=== PATIENT | female | born 1945 | race Caucasian/White ===

== ENCOUNTER 2017-10-13 20:12 | Inpatient (IN) | payer OTHER, MEDICARE ==
[2017-10-13] MEDS ORDERED: SODIUM CHLORIDE 0.9% 500 ML IV STA (21:31)
[2017-10-13] MEDS ORDERED: ONDANSETRON 4 MG/2 ML VIAL IVP STA (21:41)
--- NOTE | 2017-10-13 21:44 | ED ---
Female Urogenital HPI - General Chief complaint: Urogenital Stated complaint: Hematuria, Abd pain Time Seen by Provider: 10/13/17 21:07 Source: patient, family, RN notes reviewed Mode of arrival: ambulatory Limitations: no limitations - History of Present Illness Initial comments: This is a 71-year-old female who presents to the emergency department with chief complaint of hematuria and abdominal pain. Patient states that this morning she developed nausea, vomiting and hematuria. She states that over the past few days she has noticed increased frequency in urination. Earlier this afternoon patient developed a constant sharp, throbbing pain in the right lower quadrant that radiates around to the right side of her back. Patient does report a history of chronic back pain but states that this feels different. She does report a history of appendectomy. Denies fevers, shortness of breath or chest pain, diarrhea or constipation. She does report chills. Denies dysuria. - Related Data Home Medications Medication Instructions Recorded Confirmed Aspirin EC [Ecotrin Low Dose] 81 mg PO DAILY 10/13/17 10/13/17 Carvedilol [Coreg] 3.125 mg PO BID 10/13/17 10/13/17 Escitalopram [Lexapro] 20 mg PO DAILY PRN 10/13/17 10/13/17 Etodolac [Lodine] 400 mg PO BID 10/13/17 10/13/17 Ibuprofen [Motrin Ib] 200 mg PO BID PRN 10/13/17 10/13/17 Ipratropium/Albuterol Sulfate 1 puff INHALATION RT-HS 10/13/17 10/13/17 [Combivent Respimat Inhaler] Levothyroxine Sodium [Synthroid] 88 mcg PO DAILY 10/13/17 10/13/17 Naproxen 500 mg PO BID 10/13/17 10/13/17 Pantoprazole Sodium 40 mg PO DAILY PRN 10/13/17 10/13/17 Sucralfate [Carafate] 1 gm PO DAILY PRN 10/13/17 10/13/17 Varenicline [Chantix Starter Pack] 0.5 mg PO BID 10/13/17 10/13/17 clonazePAM [KlonoPIN] 1 mg PO HS PRN 10/13/17 10/13/17 Allergies Allergy/AdvReac Type Severity Reaction Status Date / Time promethazine [From Phenergan] Allergy Rash/Hives Verified 10/13/17 21:12 Sulfa (Sulfonamide Allergy Rash/Hives Verified 10/13/17 21:12 Antibiotics) Review of Systems ROS Statement: Those systems with pertinent positive or pertinent negative responses have been documented in the HPI. ROS Other: All systems not noted in ROS Statement are negative. Past Medical History Past Medical History: Heart Failure Additional Past Medical History / Comment(s): pt scheduled for ablation on in [place] History of Any Multi-Drug Resistant Organisms: None Reported Past Surgical History: Appendectomy, Section, Cholecystectomy, Orthopedic Surgery Past Psychological History: No Psychological Hx Reported Smoking Status: Current every day smoker Past Alcohol Use History: None Reported Past Drug Use History: None Reported General Exam - General Exam Comments Initial Comments: General: Awake and alert, well-developed; in no apparent distress. Patient appears uncomfortable and has frequent episodes of dry heaving. HEENT: Head atraumatic, normocephalic. Pupils are equal, round and reactive to light. Extraocular movements intact. Oropharynx moist without erythema or exudate. Neck: Supple. Normal ROM. Cardiovascular: Regular rate and rhythm. No murmurs, rubs or gallops. Chest symmetrical. Respiratory: Lungs clear to auscultation bilaterally. No wheezes, rales or rhonchi. Normal respiratory effort with no use of accessory muscles. Abdomen: Soft, non-distended. Tenderness on palpation of right lower quadrant. No rigidity, rebound or guarding. Hypoactive bowel sounds in all 4 quadrants. No CVA tenderness bilaterally. Musculoskeletal: Normal ROM, no tenderness bilateral upper and lower extremities. Ambulating normally. Skin: [place], warm and dry without rashes or lesions. Neurological: Alert and oriented x3. CN II-XII grossly intact. Speech is fluent and answers are appropriate. No focal neuro deficits. Psychiatric: Normal mood and affect. No overt signs of depression or anxiety noted. Limitations: no limitations Course Vital Signs 10/13/17 10/13/17 20:19 22:39 Temperature 98.6 F 101.2 F H Pulse Rate 88 Respiratory 20 Rate Blood Pressure 137/74 O2 Sat by Pulse 96 Oximetry - Reevaluation(s) Reevaluation #1: At this time, patient is resting comfortably in bed. She states that her nausea and abdominal pain has slightly improved. She does continue to be tender on palpation of the right lower quadrant. Temperature was taken and is 101.2. Patient will be given Tylenol. Computed tomography scan pending. 10/13/17 22:49 Medical Decision Making - Medical Decision Making This is a 71-year-old female who presented to the emergency department with chief complaint of hematuria and right lower quadrant abdominal pain with radiation to her back. CBC revealed a hemoglobin of 7.7 with a white count of 17.7 and left shift at 14.8. Occult stool was negative. CMP was unremarkable. UA revealed 2+ protein, large blood, positive nitrates, large leukocyte esterase, 8 red blood cells and 97 white blood cells. Patient was started on Rocephin. Patient became febrile while in the emergency department so was given tylenol. Computed tomography scan of the abdomen and pelvis without contrast revealed evidence for right hydronephrosis and hydroureter. No stone was identified. This case was discussed with attending physician, Dr. Servin. Recommended admission to Dr. Spencer for pyelonephritis. Patient will be kept on Rocephin 1 g twice a day. Ultrasound of the renals and bladder will be scheduled for the morning. Patient was made aware of findings and plan. She is in agreement for admission. Vital signs are stable and patient is in no acute distress. - Lab Data Result diagrams: 10/13/17 21:57 10/13/17 21:57 Lab Results 10/13/17 10/13/17 10/13/17 Range/Units 21:57 21:57 21:57 WBC 17.7 H (3.8-10.6) k/uL RBC 4.04 (3.80-5.40) m/uL Hgb 7.7 L (11.4-16.0) gm/dL Hct 27.8 L (34.0-46.0) % MCV 68.7 L (80.0-100.0) fL MCH 19.0 L (25.0-35.0) pg MCHC 27.7 L (31.0-37.0) g/dL RDW 17.4 H (11.5-15.5) % Plt Count 373 (150-450) k/uL Neutrophils % 84 % Lymphocytes % 9 % Monocytes % 6 % Eosinophils % 0 % Basophils % 0 % Neutrophils # 14.8 H (1.3-7.7) k/uL Lymphocytes # 1.5 (1.0-4.8) k/uL Monocytes # 1.1 H (0-1.0) k/uL Eosinophils # 0.1 (0-0.7) k/uL Basophils # 0.0 (0-0.2) k/uL Hypochromasia Marked Poikilocytosis Slight Anisocytosis Slight Microcytosis Marked PT 10.3 (9.0-12.0) sec INR 1.1 (<1.2) APTT 21.3 L (22.0-30.0) sec Sodium 138 (137-145) mmol/L Potassium 4.1 (3.5-5.1) mmol/L Chloride 105 (98-107) mmol/L Carbon Dioxide 21 L (22-30) mmol/L Anion Gap 12 mmol/L BUN 9 (7-17) mg/dL Creatinine 0.74 (0.52-1.04) mg/dL Est GFR (CKD-EPI)AfAm >90 (>60 ml/min/1.73 sqM) Est GFR (CKD-EPI)NonAf 81 (>60 ml/min/1.73 sqM) Glucose 124 H (74-99) mg/dL Plasma Lactic Acid Donovan (0.7-2.0) mmol/L Calcium 9.0 (8.4-10.2) mg/dL Total Bilirubin 1.3 (0.2-1.3) mg/dL AST 22 (14-36) U/L ALT 30 (9-52) U/L Alkaline Phosphatase 115 (38-126) U/L Total Protein 6.4 (6.3-8.2) g/dL Albumin 3.9 (3.5-5.0) g/dL Amylase 43 (30-110) U/L Lipase 64 (23-300) U/L Urine Color Urine Appearance (Clear) Urine pH (5.0-8.0) Ur Specific [place] (1.001-1.035) Urine Protein (Negative) Urine Glucose (UA) (Negative) Urine Ketones (Negative) Urine Blood (Negative) Urine Nitrite (Negative) Urine Bilirubin (Negative) Urine Urobilinogen (<2.0) mg/dL Ur Leukocyte Esterase (Negative) Urine RBC (0-5) /hpf Urine WBC (0-5) /hpf Urine WBC Clumps (None) /hpf Urine Bacteria (None) /hpf Urine Mucus (None) /hpf Stool Occult Blood (Negative) 10/13/17 10/13/17 10/13/17 Range/Units 21:57 22:57 23:37 WBC (3.8-10.6) k/uL RBC (3.80-5.40) m/uL Hgb (11.4-16.0) gm/dL Hct (34.0-46.0) % MCV (80.0-100.0) fL MCH (25.0-35.0) pg MCHC (31.0-37.0) g/dL RDW (11.5-15.5) % Plt Count (150-450) k/uL Neutrophils % % Lymphocytes % % Monocytes % % Eosinophils % % Basophils % % Neutrophils # (1.3-7.7) k/uL Lymphocytes # (1.0-4.8) k/uL Monocytes # (0-1.0) k/uL Eosinophils # (0-0.7) k/uL Basophils # (0-0.2) k/uL Hypochromasia Poikilocytosis Anisocytosis Microcytosis PT (9.0-12.0) sec INR (<1.2) APTT (22.0-30.0) sec Sodium (137-145) mmol/L Potassium (3.5-5.1) mmol/L Chloride (98-107) mmol/L Carbon Dioxide (22-30) mmol/L Anion Gap mmol/L BUN (7-17) mg/dL Creatinine (0.52-1.04) mg/dL Est GFR (CKD-EPI)AfAm (>60 ml/min/1.73 sqM) Est GFR (CKD-EPI)NonAf (>60 ml/min/1.73 sqM) Glucose (74-99) mg/dL Plasma Lactic Acid Donovan 1.6 (0.7-2.0) mmol/L Calcium (8.4-10.2) mg/dL Total Bilirubin (0.2-1.3) mg/dL AST (14-36) U/L ALT (9-52) U/L Alkaline Phosphatase (38-126) U/L Total Protein (6.3-8.2) g/dL Albumin (3.5-5.0) g/dL Amylase (30-110) U/L Lipase (23-300) U/L Urine Color Light [place] Urine Appearance Turbid H (Clear) Urine pH 6.0 (5.0-8.0) Ur Specific [place] 1.013 (1.001-1.035) Urine Protein 2+ H (Negative) Urine Glucose (UA) Negative (Negative) Urine Ketones Negative (Negative) Urine Blood Large H (Negative) Urine Nitrite Positive H (Negative) Urine Bilirubin Negative (Negative) Urine Urobilinogen 3.0 (<2.0) mg/dL Ur Leukocyte Esterase Large H (Negative) Urine RBC 8 H (0-5) /hpf Urine WBC 97 H (0-5) /hpf Urine WBC Clumps Many H (None) /hpf Urine Bacteria Rare H (None) /hpf Urine Mucus Many H (None) /hpf Stool Occult Blood Negative (Negative) - EKG Data EKG Comments: 21:49:19. Normal sinus rhythm. Low voltage QRS. Ventricular rate 96 bpm, DE interval 166, QRS duration 86, QT/QTC 354/447. - Radiology Data Radiology results: report reviewed Computed tomography scan of abdomen and pelvis without contrast impression: There is right-sided hydronephrosis and hydroureter. No stone is identified. This could relate to a recently passed stone or nonopaque stone. While thickening in the mid transverse colon. Follow-up is recommended. The possibility of an annular lesion should be considered. This could be evaluated with barium enema if clinically indicated. Disposition Clinical Impression: Pyelonephritis Disposition: ADMITTED IP TO THIS [facility] Condition: Stable Is patient prescribed a controlled substance at d/c from ED?: No Referrals: None,Stated [Primary Care Provider] - 1-2 days Time of Disposition: 00:33
[2017-10-13] MEDS ORDERED: KETOROLAC 30 MG/ML 1 ML VIAL IVP STA (22:15)
[2017-10-13 22:22] LABS: Appearance,Urine Turbid (Clear); Bacteria,Urine Rare /hpf; Bilirubin,Urine Negative (Negative); Blood,Urine Large (Negative); Color,Urine Light Orange; Glucose,Urine (UA) Negative (Negative); Ketones,Urine Negative (Negative); Leukocyte Esterase,Urine Large (Negative); Mucus,Urine Many /hpf; Nitrite,Urine Positive (Negative); Protein,Urine 2+ (Negative); RBC,Urine 8 /hpf (0-5); Specific Gravity,Urine 1.013 (1.001-1.035); WBC,Urine 97 /hpf (0-5)
[2017-10-13 22:23] LABS: Anisocytosis Slight; Basophils % (A) 0 %; Eosinophils # (A) 0.1 k/uL (0-0.7); Eosinophils % (A) 0 %; HCT 27.8 % (34.0-46.0); HGB 7.7 gm/dL (11.4-16.0); Hypochromasia Marked; Lymphocytes # (A) 1.5 k/uL (1.0-4.8); Lymphocytes % (A) 9 %; MCHC 27.7 g/dL (31.0-37.0); MCV 68.7 fL (80.0-100.0); Mean Platelet Volume 7.3; Microcytosis Marked; Monocytes # (A) 1.1 k/uL (0-1.0); Monocytes % (A) 6 %; Neutrophils # (A) 14.8 k/uL (1.3-7.7); Neutrophils % (A) 84 %; Platelet Count 373 k/uL (150-450); Poikilocytosis Slight; RBC 4.04 m/uL (3.80-5.40); RDW 17.4 % (11.5-15.5); WBC 17.7 k/uL (3.8-10.6)
[2017-10-13 22:27] LABS: ALT 30 U/L (9-52); AST 22 U/L (14-36); Albumin 3.9 g/dL (3.5-5.0); Alkaline Phosphatase 115 U/L (38-126); Amylase 43 U/L (30-110); Anion Gap 12 mmol/L; Blood Urea Nitrogen 9 mg/dL (7-17); Carbon Dioxide 21 mmol/L (22-30); Chloride 105 mmol/L (98-107); Glucose 124 mg/dL (74-99); Lipase 64 U/L (23-300); Potassium 4.1 mmol/L (3.5-5.1); Sodium 138 mmol/L (137-145); Total Bilirubin 1.3 mg/dL (0.2-1.3); Total Protein 6.4 g/dL (6.3-8.2)
[2017-10-13 22:38] LABS: INR 1.1 (<1.2); Partial Thromboplastin Time 21.3 sec (22.0-30.0); Prothrombin Time 10.3 sec (9.0-12.0)
[2017-10-13] MEDS ORDERED: ACETAMINOPHEN TAB 500 MG TAB PO STA (22:40)
--- NOTE | 2017-10-13 23:33 | CT ---
EXAMINATION TYPE: CT abdomen pelvis wo con DATE OF EXAM: 10/13/2017 COMPARISON: NONE HISTORY: Right Flank pain, R/O Stones CT DLP: 434.60 mGycm Automated exposure control for dose reduction was used. TECHNIQUE: Helical acquisition of images was performed from the lung bases through the pelvis. FINDINGS: There is interstitial infiltrate and atelectasis at the lung bases. There is no pleural effusion. The re are clips from cholecystectomy. Liver appears normal. Bile ducts are not dilated. Spleen and pancr eas appear normal. There is no adrenal mass. There is moderate right-sided hydronephrosis. There is right-sided perineph frannie edema. The right ureter is mildly dilated. I see no ureteral calculus. The left kidney shows no h ydronephrosis. Abdominal aorta is atheromatous. There is no retroperitoneal adenopathy. Bladder diste nds smoothly. There are few sigmoid diverticula. There is no sign of diverticulitis. There is a short segment of wa ll thickening involving the mid transverse colon. There is no ascites. I see no pelvic mass. There is a mild degenerative first-degree L4-5 spondylolisthesis. There is mild disc space narrowing in the l umbar spine. There is no compression fracture. I see no focal bone destruction. Appendix is not seen. There is no sign of appendicitis. \IMPRESSION: THERE IS RIGHT-SIDED HYDRONEPHROSIS AND HYDROURETER. NO STONE IS IDENTIFIED. THIS COULD RELATE TO REC ENTLY PASSED STONE OR NONOPAQUE STONE. WALL THICKENING IN THE MID TRANSVERSE COLON. FOLLOW-UP IS RECOMMENDED. THE POSSIBILITY OF AN ANNULAR LESION SHOULD BE CONSIDERED. THIS COULD BE EVALUATED WITH BARIUM ENEMA EXAMINED CLINICALLY INDICATED.
[2017-10-14] MEDS ORDERED: cefTRIAXone IN SWFI 1,000 MG/10 ML SYRINGE IVP STA (00:29)
[2017-10-14] MEDS ORDERED: MORPHINE SULFATE 2 MG/ML SYRINGE IV PRN (00:34)
[2017-10-14] MEDS ORDERED: NALOXONE 0.4 MG/ML 1 ML VIAL IV PRN (00:34)
[2017-10-14 02:30] VITALS: BMI 29.5
[2017-10-14] MEDS: SODIUM CHLORIDE 0.9% 1,000 ML IV SCH ×2 (02:37→15:52)
[2017-10-14] MEDS: ACETAMINOPHEN TAB 325 MG TAB PO PRN ×2 (02:41→17:53)
[2017-10-14] MEDS ORDERED: KETOROLAC 30 MG/ML 1 ML VIAL IVP SCH (06:00)
[2017-10-14] MEDS ORDERED: cefTRIAXone IN SWFI 1,000 MG/10 ML SYRINGE IVP SCH (09:00)
[2017-10-14] MEDS: KETOROLAC 30 MG/ML 1 ML VIAL IVP SCH ×3 (10:00→19:05)
[2017-10-14] MEDS ORDERED: LEVOTHYROXINE 88 MCG TAB PO SCH (12:00)
[2017-10-14] MEDS ORDERED: PANTOPRAZOLE 40 MG TABLET PO PRN (12:45)
[2017-10-14] MEDS ORDERED: SUCRALFATE 1 GM TAB PO PRN (12:45)
[2017-10-14] MEDS ORDERED: SUCRALFATE 1 GM PO PRN (13:05)
[2017-10-14] MEDS ORDERED: PANTOPRAZOLE 40 MG PO ONE (13:30)
[2017-10-14] MEDS: LEVOTHYROXINE 88 MCG PO SCH (15:53)
[2017-10-14] MEDS: CARVEDILOL 3.125 MG PO SCH (17:05)
[2017-10-14] MEDS ORDERED: CARVEDILOL 3.125 MG TAB PO SCH (17:30)
[2017-10-14] MEDS: cefTRIAXone IN SWFI 2,000 MG/20 ML SYRINGE IVP SCH (17:49)
[2017-10-14] MEDS ORDERED: ALPRAZolam 0.25 MG TAB PO PRN (19:43)
[2017-10-14] MEDS ORDERED: clonazePAM 1 MG TAB PO PRN (19:43)
[2017-10-14] MEDS: IPRATROPIUM-ALBUTEROL 3 ML NEB INHALATION SCH (20:17)
[2017-10-14] MEDS: CHANTIX 0.5 MG PO SCH (20:57)
[2017-10-14] MEDS: HEPARIN SODIUM,PORCINE 5,000 UNIT/ML 1 ML VIAL SQ SCH (20:57)
[2017-10-14] MEDS ORDERED: TEMAZEPAM 15 MG CAP PO PRN (21:00)
[2017-10-14] MEDS ORDERED: VARENICLINE 0.5 MG TAB PO SCH (21:00)
--- NOTE | 2017-10-14 21:48 | HP ---
HISTORY AND PHYSICAL DATE OF SERVICE: 10/14/2017 CHIEF COMPLAINTS: Hematuria and abdominal pain. HISTORY OF PRESENT ILLNESS: This 71-year-old woman with a past medical history of multiple medical problems, including atrial flutter, history of COPD, GERD, DJD, history of supraventricular tachycardia, being followed by a primary physician in [place], was visiting [facility]. The patient developed hematuria as well as abdominal discomfort and pain. The patient had some nausea, vomiting and the patient came to [facility], admitted for further evaluation and treatment. The evaluation showed elevated WBC 17.6, hemoglobin was 7 and UA showed evidence of UTI. The patient is admitted for further evaluation and treatment. Abdominal-pelvis CAT scan was also done which showed evidence of right-sided hydronephrosis and hydroureter. No stone is identified. A few stones could be passed and wall thickening of the mid transverse colon was also noted. The possibility pyelonephritis considered and the patient admitted for further evaluation and treatment. There is no history any rigors. No history of headache, loss of consciousness, seizures at this time. PAST MEDICAL HISTORY: Atrial flutter, COPD, GERD, DJD, history of hyperlipidemia, history of SVT. MEDICATIONS PRIOR TO ADMISSION: Include home medications are: 1. Klonopin 1 mg q.h.s. p.r.n. 2. Carafate 1 g daily p.r.n. 3. Protonix 40 mg daily p.r.n. 4. Combivent 1 puff q.h.s. 5. Lexapro 20 mg daily p.r.n. 6. Naprosyn 500 mg p.o. b.i.d. 7. Chantix 0.5 mg b.i.d. 8. Synthroid 18 mcg p.o. daily. 9. Motrin 200 mg b.i.d. p.r.n. 10.Lodine 400 mg b.i.d. p.r.n. 11.Coreg 3.125 mg b.i.d. 12.Ecotrin 81 mg daily. ALLERGIES: PHENERGAN, SULFA. FAMILY HISTORY: History of liver cancer in the family. SOCIAL HISTORY: History of smoking on ongoing basis. REVIEW OF SYSTEMS: ENT: No diminished hearing, diminished vision. CARDIOVASCULAR: No angina, palpitations. RESPIRATORY: As mentioned earlier. GI: As mentioned earlier. : As mentioned earlier. NERVOUS: No numbness or weakness. ALLERGY/IMMUNOLOGY: No asthma or hay fever. MUSCULOSKELETAL: As mentioned earlier. HEMATOLOGY/ONCOLOGY: No history of anemia. ENDOCRINE: No history of diabetes, hypothyroidism. CONSTITUTIONAL: As mentioned earlier. DERMATOLOGY: Negative. RHEUMATOLOGY: Negative. PSYCHIATRY: As mentioned earlier. PHYSICAL EXAMINATION: Alert, oriented x3. Pulse is 85, blood pressure 97/60, respirations 16, temperature 97.9, pulse ox 93% on room air. HEENT: Conjunctivae normal. Oral mucosa moist. NECK: No jugular venous distention. No carotid bruits. No lymph node enlargement. CARDIOVASCULAR: S1, S2 muffled. No S3, S4.. RESPIRATORY: Breath sounds diminished in the bases. A few scattered rhonchi. No crackles. ABDOMEN: Soft, obese. Mild diffuse tenderness on the right side. No mass palpable. LEGS: No edema. No swelling. NERVOUS SYSTEM: Higher functions as mentioned earlier. Moves all 4 limbs. No focal motor or sensory deficits. LYMPHATIC: No lymphadenopathy in neck or axillae. SKIN: No ulcer, rash or bleeding. LAB STUDIES: At this time shows WBC 17.7, hemoglobin is 7.7. Other labs are noted. UA noted. ASSESSMENT: 1. Acute pyelonephritis on the right side with possible sepsis. 2. Possible urolithiasis. 3. Increased WBC. 4. Anemia, microcytic. 5. Right-sided hydronephrosis with hydroureter, possible secondary nephrolithiasis. 6. Some thickening of the mid transverse colon. 7. History of atrial flutter. 8. Chronic obstructive pulmonary disease. 9. Gastroesophageal reflux disease. 10.Hyperlipidemia. 11.History of degenerative joint disease. 12.Supraventricular tachycardia. 13.Appendectomy. 14.Attention deficit disorder, attention deficit hyperactivity disorder. 15.Anxiety, depression. 16.History of nicotine dependence. RECOMMENDATIONS AND DISCUSSION: In this 71-year-old woman who presented with multiple complex medical issues, will monitor the patient closely, continue the current medical treatment. Broad-spectrum IV antibiotics will be instituted. Otherwise I would also recommend obtaining cultures, symptomatic treatment, DVT prophylaxis, resume the home medications. Otherwise, prognosis guarded because of multiple complex medical issues, which I discussed at length with the patient and family and will hold NSAIDs for now because of concerns of hematuria and further recommendations to follow. Coagulation parameters are within normal limits. MMODL / IJN: [id number] /
[2017-10-15] MEDS: KETOROLAC 30 MG/ML 1 ML VIAL IVP SCH ×3 (00:27→12:10)
[2017-10-15] MEDS: PANTOPRAZOLE 40 MG PO PRN ×2 (00:34→07:54)
[2017-10-15] MEDS: SODIUM CHLORIDE 0.9% 1,000 ML IV SCH ×3 (00:36→22:42)
[2017-10-15] MEDS: LEVOTHYROXINE 88 MCG PO SCH (07:40)
[2017-10-15] MEDS: CARVEDILOL 3.125 MG PO SCH ×2 (07:54→19:17)
[2017-10-15] MEDS: ACETAMINOPHEN TAB 325 MG TAB PO PRN ×2 (07:55→13:51)
--- NOTE | 2017-10-15 08:43 | CONS ---
CONSULTATION DATE OF SERVICE: 10/14/2017. REASON FOR CONSULTATION: Gram-negative bacteremia. HISTORY OF PRESENT ILLNESS: The patient is a 71-year-old female presenting to the ER at [facility] last night with chief complaints of hematuria and abdominal pain. The patient's symptoms has been going on since with symptom initially more of a burning of urine. Subsequently with slight hematuria and pain. Pain has been described to be mostly in the left flank area, more of a dull aching pain 5-6 out of 10 and no radiation. The patient has felt nauseated but no vomiting and no diarrhea or constipation. With these symptoms, the patient did present to the [facility] ER where the patient has been evaluated by the ER physician. On arrival to the ER, the patient did have fever of 101.2 degrees Fahrenheit. The patient did have a white count of 17,000 with the UA significantly positive with large leukocyte esterase with many WBCs. The patient did have a CT of abdomen and pelvis completed which shows right- sided hydronephrosis and hydroureter. No stone identified. With blood cultures coming positive gram negative, ID was consulted for further recommendation regarding antibiotic therapy. REVIEW OF SYSTEMS: CONSTITUTIONAL: Positive for weakness along with the fever. EYES: No complaint. ENT: No complaint. RESPIRATORY: No complaint. CARDIOVASCULAR: No complaint. GENITOURINARY: As per HPI. GASTROINTESTINAL: As per HPI. MUSCULOSKELETAL: No complaint. INTEGUMENTARY: No complaint. PSYCHOLOGICAL: No complaint. ENDOCRINE: No complaint. NEUROLOGIC: No complaint. PAST MEDICAL HISTORY: Significant for heart failure, osteoarthritis. PAST SURGICAL HISTORY: , cholecystectomy and appendectomy. SOCIAL HISTORY: Patient current everyday smoker. No drinking or any drug use. FAMILY HISTORY: No pertinent findings noticed. ALLERGIES: SULFA and PROMETHAZINE. MEDICATION: Include the patient is currently on Tylenol, DuoNeb, Xanax, aspirin, Rocephin 1 g q.12, Klonopin, Lexapro, heparin, Toradol, Narcan, nicotine patch, Levothyroxine, sucralfate, Coreg, Chantix, Protonix. PHYSICAL EXAMINATION: On examination blood pressure is 114/63, pulse of 94, temperature 96.9. General description is an elderly female lying in bed in no distress. No tachypnea or accessory muscle of respiration use. HEENT: Examination shows no pallor or scleral icterus. Oral mucosa is dry. No pharyngeal erythema or thrush. NECK: Trachea central. No thyromegaly. LUNGS: Unlabored breathing. Clear to auscultation anteriorly. HEART: S1, S2. Regular rate and rhythm. ABDOMEN: Soft, no tenderness. No guarding or rigidity. EXTREMITIES: No edema feet. SKIN EXAMINATION: No rash or mass palpable. NEUROLOGICAL: Patient is awake, alert, oriented x3. Mood and affect normal. LABS: Hemoglobin 7.7, white count 17.7 with a BUN of 9, creatinine 0.74. Electrolytes have been normal. Liver enzymes are normal. Urine was significantly positive leukocyte esterases, 97 WBC. Cultures are currently gram-negative. Blood cultures with gram- negative bacilli. DIAGNOSTIC IMPRESSION AND PLAN: Patient with sepsis in a patient admitted to hospital with burning of urine, frequency and hematuria. The patient did have a fever of 101 degrees Fahrenheit and did have elevated white count of 17,000 with a significantly positive UA. Source is likely complicated right-sided pyelonephritis in a patient who did have evidence of hydroureter and hydronephrosis, though no stone was identified, now with gram-negative bacteremia. PLAN: 1. We will increase the dose of Rocephin 2 g; however, switch it over to daily. 2. Aggressive IV fluid. 3. May benefit from urology evaluation. 4. We will follow up on the clinical condition and culture to further adjust medication if needed. Family was present at bedside. Their questions and concerns were answered. MMODL / IJN: [id number] /
[2017-10-15] MEDS: PANTOPRAZOLE 40 MG TABLET PO SCH (09:04)
[2017-10-15] MEDS: CHANTIX 0.5 MG PO SCH ×2 (09:35→22:20)
[2017-10-15] MEDS: ASPIRIN 81 MG PO SCH (09:35)
[2017-10-15] MEDS: ESCITALOPRAM 20 MG TAB PO SCH (09:35)
[2017-10-15] MEDS: HEPARIN SODIUM,PORCINE 5,000 UNIT/ML 1 ML VIAL SQ SCH ×2 (09:36→22:21)
[2017-10-15] MEDS: NICOTINE 14MG/24HR PATCH TRANSDERM SCH (09:36)
[2017-10-15 12:00] LABS: Anisocytosis Slight; Basophils # (A) 0.1 k/uL (0-0.2); Basophils % (A) 0 %; Eosinophils # (A) 0.3 k/uL (0-0.7); Eosinophils % (A) 2 %; HCT 22.9 % (34.0-46.0); Hypochromasia Marked; Lymphocytes # (A) 1.6 k/uL (1.0-4.8); Lymphocytes % (A) 10 %; MCH 19.5 pg (25.0-35.0); MCHC 27.5 g/dL (31.0-37.0); MCV 71.1 fL (80.0-100.0); Microcytosis Moderate; Monocytes # (A) 0.8 k/uL (0-1.0); Monocytes % (A) 6 %; Neutrophils # (A) 11.9 k/uL (1.3-7.7); Neutrophils % (A) 80 %; Platelet Count 304 k/uL (150-450); Poikilocytosis Slight; RBC 3.22 m/uL (3.80-5.40); RDW 17.2 % (11.5-15.5); WBC 14.9 k/uL (3.8-10.6)
[2017-10-15 12:04] LABS: HGB 6.3 gm/dL (11.4-16.0)
[2017-10-15] MEDS ORDERED: FUROSEMIDE 10 MG/ML 2 ML VIAL IV STA (12:11)
[2017-10-15] MEDS: cefTRIAXone IN SWFI 2,000 MG/20 ML SYRINGE IVP SCH (17:55)
[2017-10-15] MEDS: IPRATROPIUM-ALBUTEROL 3 ML NEB INHALATION SCH (20:11)
--- NOTE | 2017-10-15 22:55 | PN ---
PROGRESS NOTE DATE OF SERVICE: 10/15/2017 This 71-year-old woman was admitted with hematuria and abdominal pain, also had possible urolithiasis also. The patient hemoglobin has gone down to 6.3 at this time. The transfusion has been arranged. Otherwise, Infectious Disease is following the patient closely. The cultures are showing gram-negative bacilli in the blood and urine indicating sepsis also. PAST MEDICAL HISTORY: Reviewed. REVIEW OF SYSTEMS: Cardiovascular: No angina or palpitations. RESPIRATORY: As mentioned earlier. GI: No nausea, vomiting or diarrhea. : No dysuria. NERVOUS SYSTEM: As mentioned earlier. CURRENT MEDICATIONS ARE: Medications are reviewed and include: 1. Tylenol 650 q.6h p.r.n. 2. DuoNeb q.i.d. p.r.n. 3. Xanax 0.25 t.i.d. 4. Aspirin 81 mg. 5. Rocephin 2 g daily. 6. Klonopin 1 mg q.h.s. 7. Lexapro 20 mg daily. 8. Heparin 5000 subcu b.i.d. 9. Toradol 15 mg q.6h p.r.n. 10.Morphine sulfate. 11.Narcan 0.2 q.2h p.r.n. 12.Habitrol 14. 13.Levothyroxine 80 mcg. 14.Carafate 1 g daily. 15.Coreg 3.25 mg b.i.d. 16.Chantix 0.5 mg b.i.d. 17.Protonix 40 mg daily. 18.Restoril 51 mg q.h.s. p.r.n. PHYSICAL EXAM: Patient is alert, oriented x3. Pulse 78, blood pressure 120/72, respiration 18, temperature 98.2, pulse ox 94% on 2 L. HEENT: Conjunctivae pale. Oral mucosa moist. NECK is no jugular venous distention. No carotid bruit. No lymph node enlargement. CARDIOVASCULAR: S1, S2 muffled. RESPIRATORY: Breath sounds diminished in the bases. A few scattered rhonchi and crackles. ABDOMEN: Soft, mild diffuse distention. Mild diffuse tenderness also present. No guarding. No rigidity. No mass palpable. No ascites. Bowel sounds present. LEGS: No edema and no swelling. NERVOUS SYSTEM: Higher functions as mentioned earlier. Moves all four extremities. No focal motor or sensory deficits. Lymphatics: No lymph nodes palpable in the neck, axillae or groin. SKIN: No ulcer, rash or bleeding. LAB STUDIES: WBC 14.9, hemoglobin 6.3. ASSESSMENT: 1. Acute pyelonephritis on the right side with possible sepsis, gram negative bacilli. 2. Possible urolithiasis. 3. Increased WBC. 4. Anemia microcytic. 5. Right-sided hydronephrosis, possibly secondary to nephrolithiasis. 6. Some thickening of the midtransverse colon. 7. History of atrial flutter. 8. Chronic obstructive pulmonary disease. 9. Gastroesophageal reflux disease. 10.Hyperlipidemia. 11.History of degenerative joint disease. 12.Supraventricular tachycardia history. 13.Appendectomy. 14.History attention-deficit/hyperactivity disorder. 15.Anxiety, depression. 16.History of nicotine dependence. 17.FULL CODE. RECOMMENDATIONS AND DISCUSSION: Recommend to continue current medications, management and symptomatic treatment. We will follow the cultures for the final ID. Continue the antibiotics and follow with Infectious Disease. I would also recommend a urology evaluation because of the continued symptomatology. Otherwise, prognosis guarded because of multiple complex medical issues. Further recommendations to follow. MMODL / IJN: [id number] / MTDD
--- NOTE | 2017-10-16 00:25 | PN ---
PROGRESS NOTE DATE OF SERVICE: 10/15/2017. REASON FOR FOLLOWUP: Gram-negative bacteremia secondary to right-sided pyelonephritis. INTERVAL HISTORY: The patient's fever pattern has improved. The patient denies having any chest pain, shortness of breath or cough. No abdominal pain. No diarrhea. EXAMINATION: Blood pressure is 121/72 with a pulse of 83, temperature 98.9, she is 95% on 2 L nasal cannula. GENERAL DESCRIPTION: An elderly female lying in bed in no distress. RESPIRATORY SYSTEM: Unlabored breathing. Clear to auscultation anteriorly. HEART: S1, S2. Regular rate and rhythm. ABDOMEN: Soft. LABS: White count of 14.9. Blood cultures with gram-negative bacilli. DIAGNOSTIC IMPRESSION AND PLAN: Patient with gram-negative bacteremia, source is right-sided pyelonephritis. The patient at this time is to continue with Rocephin 2 g daily while waiting for the sensitivity to finalize. Continue supportive care. MMODL / IJN: [id number] /
[2017-10-16] MEDS: LEVOTHYROXINE 88 MCG PO SCH (06:02)
--- NOTE | 2017-10-16 07:57 | P.GSCN ---
History of Present Illness Consult date: 10/16/17 Reason for Consult: Hydronephrosis Requesting physician: Mary Spencer History of present illness: The patient is a 71-year-old white female visiting from [place]. She has an unremarkable urologic history. Specifically, she denies any prior history of urolithiasis. She was treated for a childhood UTI but has not had UTIs in her adulthood. She was admitted with right flank pain, radiating to the right lower quadrant. This was associated with gross hematuria, fever, and chills. Computed tomography scan has shown evidence of right hydroureteronephrosis. She states that she is feeling better but continues to experience diffuse lower back pain. Review of Systems - Constitutional Reports chills, Reports fever - Gastrointestinal Reports nausea, Reports vomiting - Genitourinary Genitourinary: Reports flank pain, Reports hematuria Past Medical History Past Medical History: Atrial Flutter, Blood Disorder, COPD, Eye Disorder, GERD/ Reflux, Hearing Disorder / Deafness, Hyperlipidemia, Memory Impairment, Osteoarthritis (OA), Renal Disease, Supraventricular Tachycardia (SVT), Syncope , Thyroid Disorder Additional Past Medical History / Comment(s): Anemia, pt scheduled for ablation on 10/19/17 in [place], ventricular tachycardia, hiatel hernia, knee surgery, bunion surgery, hammer toe surgery History of Any Multi-Drug Resistant Organisms: None Reported Past Surgical History: Appendectomy, Section, Cholecystectomy, Orthopedic Surgery Past Anesthesia/Blood Transfusion Reactions: No Reported Reaction Past Psychological History: No Psychological Hx Reported, ADD/ADHD, Anxiety, Depression Smoking Status: Current every day smoker Past Alcohol Use History: None Reported Past Drug Use History: None Reported - Past Family History Father Family Medical History: Cancer Additional Family Medical History / Comment(s): Liver cancer Mother Additional Family Medical History / Comment(s): cirrhosis Medications and Allergies Home Medications Medication Instructions Recorded Confirmed Type Aspirin EC [Ecotrin Low Dose] 81 mg PO DAILY 10/13/17 10/13/17 History Carvedilol [Coreg] 3.125 mg PO BID 10/13/17 10/13/17 History Escitalopram [Lexapro] 20 mg PO DAILY PRN 10/13/17 10/13/17 History Etodolac [Lodine] 400 mg PO BID 10/13/17 10/13/17 History Ibuprofen [Motrin Ib] 200 mg PO BID PRN 10/13/17 10/13/17 History Ipratropium/Albuterol Sulfate 1 puff INHALATION RT-HS 10/13/17 10/13/17 History [Combivent Respimat Inhaler] Levothyroxine Sodium [Synthroid] 88 mcg PO DAILY 10/13/17 10/13/17 History Naproxen 500 mg PO BID 10/13/17 10/13/17 History Pantoprazole Sodium 40 mg PO DAILY PRN 10/13/17 10/13/17 History Sucralfate [Carafate] 1 gm PO DAILY PRN 10/13/17 10/13/17 History Varenicline [Chantix Starter Pack] 0.5 mg PO BID 10/13/17 10/13/17 History clonazePAM [KlonoPIN] 1 mg PO HS PRN 10/13/17 10/13/17 History Allergies Allergy/AdvReac Type Severity Reaction Status Date / Time promethazine [From Phenergan] Allergy Rash/Hives Verified 10/13/17 21:12 Sulfa (Sulfonamide Allergy Rash/Hives Verified 10/13/17 21:12 Antibiotics) Surgical - Exam Vital Signs Temp Pulse Resp BP Pulse Ox 98.6 F 88 20 137/74 96 10/13/17 20:19 10/13/17 20:19 10/13/17 20:19 10/13/17 20:19 10/13/17 20:19 - General well developed, well nourished, no distress - Respiratory normal respiratory effort - Abdomen Abdomen: soft, tender (Mild right lower quadrant and right CVA tenderness), no guarding, no rigid, no rebound, no distended - Psychiatric oriented to time, oriented to person, oriented to place, speech is normal, memory intact Results - Labs 10/15/17 11:41 10/15/17 11:41 Abnormal Lab Results - Last 24 Hours (Table) 10/15/17 10/15/17 10/15/17 Range/Units 11:41 11:41 12:43 WBC 14.9 H (3.8-10.6) k/uL RBC 3.22 L (3.80-5.40) m/uL Hgb 6.3 L* (11.4-16.0) gm/dL Hct 22.9 L (34.0-46.0) % MCV 71.1 L (80.0-100.0) fL MCH 19.5 L (25.0-35.0) pg MCHC 27.5 L (31.0-37.0) g/dL RDW 17.2 H (11.5-15.5) % Neutrophils # 11.9 H (1.3-7.7) k/uL Chloride 110 H (98-107) mmol/L Calcium 8.0 L (8.4-10.2) mg/dL Crossmatch See Detail Microbiology - Last 24 Hours (Table) 10/13/17 23:37 Blood Culture Gram Stain - Final Blood Blood Culture - Final Escherichia coli 10/13/17 21:57 Urine Culture - Preliminary Urine,Voided Gram Neg Bacilli Diabetes panel 10/15/17 Range/Units 11:41 Sodium 141 (137-145) mmol/L Potassium 4.0 (3.5-5.1) mmol/L Chloride 110 H (98-107) mmol/L Carbon Dioxide 23 (22-30) mmol/L BUN 17 (7-17) mg/dL Creatinine 0.83 (0.52-1.04) mg/dL Glucose 90 (74-99) mg/dL Calcium 8.0 L (8.4-10.2) mg/dL Calcium panel 10/15/17 Range/Units 11:41 Calcium 8.0 L (8.4-10.2) mg/dL Pituitary panel 10/15/17 Range/Units 11:41 Sodium 141 (137-145) mmol/L Potassium 4.0 (3.5-5.1) mmol/L Chloride 110 H (98-107) mmol/L Carbon Dioxide 23 (22-30) mmol/L BUN 17 (7-17) mg/dL Creatinine 0.83 (0.52-1.04) mg/dL Glucose 90 (74-99) mg/dL Calcium 8.0 L (8.4-10.2) mg/dL Adrenal panel 10/15/17 Range/Units 11:41 Sodium 141 (137-145) mmol/L Potassium 4.0 (3.5-5.1) mmol/L Chloride 110 H (98-107) mmol/L Carbon Dioxide 23 (22-30) mmol/L BUN 17 (7-17) mg/dL Creatinine 0.83 (0.52-1.04) mg/dL Glucose 90 (74-99) mg/dL Calcium 8.0 L (8.4-10.2) mg/dL - Imaging CT scan - abdomen: report reviewed, image reviewed Assessment and Plan (1) Pyelonephritis Current Visit: Yes Status: Acute Code(s): N12 - TUBULO-INTERSTITIAL NEPHRITIS, NOT SPCF ACUTE OR CHRONIC SNOMED Code(s): 25789794 Plan: Urine culture shows greater than 100,000 gram-negative bacilli, and blood cultures shows E. coli. It thus appears that she has acute right pyelonephritis with bacteremia. She is currently receiving Rocephin, pending the final culture results. Her condition is improving. The hematuria has resolved. I had a detailed discussion with the patient regarding the finding of right hydroureteronephrosis. A stone was not seen on the computed tomography scan, and it is likely that she passed a ureteral calculus. However , she is a lifetime smoker and I explained to her that there are other possible scenarios, including urothelial carcinoma of the bladder in the area of the right ureteral orifice. If she continues to respond to antibiotics, it would be my suggestion that she be discharged home on appropriate oral antibiotics and return [place]. I stressed to her the need for a renal ultrasound to be obtained to confirm resolution of her hydronephrosis. If the hydronephrosis persists, she will require a formal evaluation. Conversely, if her symptoms and hydronephrosis resolve, I do not feel that further evaluation is needed. Please notify me if I can be of any further assistance during this hospitalization. Time with Patient: Greater than 30
[2017-10-16 08:06] LABS: Anion Gap 10 mmol/L; Blood Urea Nitrogen 11 mg/dL (7-17); Calcium 8.1 mg/dL (8.4-10.2); Carbon Dioxide 22 mmol/L (22-30); Chloride 108 mmol/L (98-107); Glucose 88 mg/dL (74-99); Potassium 3.9 mmol/L (3.5-5.1); Sodium 140 mmol/L (137-145)
[2017-10-16] MEDS: CHANTIX 0.5 MG PO SCH ×2 (08:52→20:52)
[2017-10-16] MEDS: CARVEDILOL 3.125 MG PO SCH ×2 (08:52→18:34)
[2017-10-16] MEDS: ACETAMINOPHEN TAB 325 MG TAB PO PRN ×2 (08:53→18:35)
[2017-10-16] MEDS: ESCITALOPRAM 20 MG TAB PO SCH (08:53)
[2017-10-16] MEDS: PANTOPRAZOLE 40 MG TABLET PO SCH (08:53)
[2017-10-16] MEDS: ASPIRIN 81 MG PO SCH (08:53)
[2017-10-16] MEDS: HEPARIN SODIUM,PORCINE 5,000 UNIT/ML 1 ML VIAL SQ SCH ×2 (08:54→20:52)
[2017-10-16] MEDS: NICOTINE 14MG/24HR PATCH TRANSDERM SCH (08:55)
[2017-10-16 09:06] LABS: Anisocytosis Slight; Basophils % (A) 0 %; Eosinophils # (A) 0.2 k/uL (0-0.7); Eosinophils % (A) 2 %; HCT 29.5 % (34.0-46.0); Hypochromasia Marked; Lymphocytes # (A) 1.6 k/uL (1.0-4.8); Lymphocytes % (A) 12 %; MCH 21.6 pg (25.0-35.0); MCHC 29.2 g/dL (31.0-37.0); MCV 74.1 fL (80.0-100.0); Mean Platelet Volume 6.8; Microcytosis Moderate; Monocytes # (A) 0.8 k/uL (0-1.0); Monocytes % (A) 6 %; Neutrophils # (A) 10.6 k/uL (1.3-7.7); Neutrophils % (A) 79 %; Platelet Count 285 k/uL (150-450); Poikilocytosis Marked; RBC 3.97 m/uL (3.80-5.40); WBC 13.4 k/uL (3.8-10.6)
[2017-10-16 09:23] LABS: HGB 8.6 gm/dL (11.4-16.0)
--- NOTE | 2017-10-16 16:23 | PN ---
PROGRESS NOTE DATE OF SERVICE: 10/16/2017 This 71-year-old woman who was admitted with hematuria, abdominal pain, also had pyelonephritis. There is minimal hydronephrosis on the right side. No chest pain. No palpitations. No fever. PHYSICAL EXAM: Alert and oriented x3. Pulse is 89, blood pressure 130/62, respirations 18, temperature 97 degrees, pulse ox 98% on 2 L. HEENT: Conjunctivae normal. Oral mucosa moist. Neck is no jugular venous distention. No carotid bruit. No lymph node enlargement. CARDIOVASCULAR: S1, S2. RESPIRATORY: Breath sounds diminished in the bases. No rhonchi, no crackles. ABDOMEN: Soft, mild diffuse tenderness. No mass palpable. LEGS: No edema. NERVOUS SYSTEM: No focal deficits. LABS: WBC 13.2, hemoglobin is 8.6. ASSESSMENT: 1. Acute pyelonephritis on the right side with possible sepsis with gram-negative bacilli with E coli, which is poly sensitive. 2. Possible urolithiasis. 3. Mild right hydronephrosis. 4. Increased WBC. 5. Anemia microcytic. 6. Some thickening of the midtransverse colon in the CT scan. 7. History of atrial flutter. 8. Chronic obstructive pulmonary disease. 9. Gastroesophageal reflux disease. 10.Hyperlipidemia. 11.History of degenerative joint disease. 12.History of supraventricular tachycardia history. 13.Appendectomy. 14.History attention deficit disorder, attention deficit hyperactivity disorder. 15.Anxiety, depression. 16.History of nicotine dependence. 17.FULL CODE. RECOMMENDATIONS AND DISCUSSION: I recommend to continue current management and symptomatic treatment. Continue the antibiotics. Closely follow Urology. Guarded prognosis. Further recommendations to follow. MMODL / IJN: [id number] /
[2017-10-16] MEDS: cefTRIAXone IN SWFI 2,000 MG/20 ML SYRINGE IVP SCH (18:35)
[2017-10-16] MEDS: IPRATROPIUM-ALBUTEROL 3 ML NEB INHALATION SCH (20:35)
[2017-10-16] MEDS: SODIUM CHLORIDE 0.9% 1,000 ML IV SCH (22:50)
--- NOTE | 2017-10-17 04:48 | PN ---
PROGRESS NOTE DATE OF SERVICE: 10/16/2017. REASON FOR FOLLOWUP: E coli bacteremia secondary to the urinary source. INTERVAL HISTORY: The patient is afebrile. She has been breathing comfortably. Denies any chest pain or shortness of breath. No cough. Abdominal pain has improved. No nausea, vomiting, or any diarrhea. EXAMINATION: Blood pressure 119/68 with a pulse of 79, temperature 99.2. She is 93% on room air. General description is a middle aged female, lying in bed in no distress. RESPIRATORY SYSTEM: Unlabored breathing. Clear to auscultation anteriorly. HEART: S1, S2. Regular rate and rhythm. ABDOMEN: Soft, no tenderness. LABS: Hemoglobin 8.8, hematocrit 13.4, BUN of 9, creatinine 0.58. DIAGNOSTIC IMPRESSION AND PLAN: Patient with an E coli bacteremia secondary to the urinary source. The patient is currently covered with Rocephin. As this is sensitive pathogen, will benefit therapy with oral Cipro 500 mg twice a day for another 12 days. Continue supportive care. MMODL / IJN: [id number] /
[2017-10-17] MEDS: LEVOTHYROXINE 88 MCG PO SCH (05:38)
[2017-10-17 07:25] LABS: Anisocytosis Slight; Basophils # (A) 0.1 k/uL (0-0.2); Basophils % (A) 1 %; Eosinophils # (A) 0.4 k/uL (0-0.7); Eosinophils % (A) 4 %; HCT 31.5 % (34.0-46.0); HGB 9.2 gm/dL (11.4-16.0); Hypochromasia Marked; Lymphocytes # (A) 1.2 k/uL (1.0-4.8); Lymphocytes % (A) 13 %; MCH 21.5 pg (25.0-35.0); MCHC 29.1 g/dL (31.0-37.0); Mean Platelet Volume 7.1; Microcytosis Moderate; Monocytes # (A) 0.6 k/uL (0-1.0); Monocytes % (A) 6 %; Neutrophils # (A) 6.6 k/uL (1.3-7.7); Neutrophils % (A) 72 %; Platelet Count 327 k/uL (150-450); Poikilocytosis Marked; RBC 4.26 m/uL (3.80-5.40); RDW 18.3 % (11.5-15.5); WBC 9.2 k/uL (3.8-10.6)
[2017-10-17 07:58] LABS: Anion Gap 9 mmol/L; Blood Urea Nitrogen 9 mg/dL (7-17); Calcium 8.4 mg/dL (8.4-10.2); Carbon Dioxide 23 mmol/L (22-30); Chloride 109 mmol/L (98-107); Glucose 87 mg/dL (74-99); Potassium 3.7 mmol/L (3.5-5.1); Sodium 141 mmol/L (137-145)
[2017-10-17 08:20] VITALS: BP 122/61; PULSE 78; RESP 14; TEMP 97.2
[2017-10-17] MEDS: ESCITALOPRAM 20 MG TAB PO SCH (08:26)
[2017-10-17] MEDS: HEPARIN SODIUM,PORCINE 5,000 UNIT/ML 1 ML VIAL SQ SCH (08:26)
[2017-10-17] MEDS: ASPIRIN 81 MG PO SCH (08:26)
[2017-10-17] MEDS: NICOTINE 14MG/24HR PATCH TRANSDERM SCH (08:26)
[2017-10-17] MEDS: CARVEDILOL 3.125 MG PO SCH (08:26)
[2017-10-17] MEDS: PANTOPRAZOLE 40 MG TABLET PO SCH (08:26)
[2017-10-17] MEDS: ACETAMINOPHEN TAB 325 MG TAB PO PRN (08:27)
[2017-10-17] MEDS: CHANTIX 0.5 MG PO SCH (08:27)
--- NOTE | 2017-10-17 16:28 | PN ---
PROGRESS NOTE DATE OF SERVICE: 10/17/2017. REASON FOR FOLLOWUP VISIT: E coli bacteremia secondary to urinary source. INTERVAL HISTORY: The patient is afebrile. She is currently breathing comfortably. Denies having any chest pain or shortness of breath or cough. No abdominal pain or any diarrhea. EXAMINATION: Blood pressure 122/61 with a pulse of 70, temperature 97.2. She is 98% on room air. General description is an elderly female lying in bed in no distress. RESPIRATORY SYSTEM: Unlabored breathing. Clear to auscultation anteriorly. HEART: S1, S2. Regular rate and rhythm. ABDOMEN: Soft, no tenderness. LABS: Hemoglobin 9.2, white count 9.2 with a BUN of 9, creatinine 0.62. DIAGNOSTIC IMPRESSION AND PLAN: Patient with Escherichia coli bacteremia secondary to the urinary source. Her white count has normalized. The patient did finish therapy with oral Cipro 500 mg twice a day for another 10 days with close outpatient followup. MMODL / IJN: [id number] /
[2017-10-17] MEDS: cefTRIAXone IN SWFI 2,000 MG/20 ML SYRINGE IVP SCH (17:03)
[2017-10-17] MEDS: IPRATROPIUM-ALBUTEROL 3 ML NEB INHALATION SCH (19:27)
--- NOTE | 2017-10-17 23:47 | DS ---
DISCHARGE SUMMARY DATE OF SERVICE: 10/17/2017. FINAL DIAGNOSES: 1. Acute pyelonephritis on the right side with possible sepsis with gram-negative bacilli with Escherichia coli which is poly sensitive. 2. Possible urolithiasis. 3. Mild right hydronephrosis. 4. Increased WBC. 5. Anemia, microcytic. 6. Some thickening of the midtransverse colon on the CT scan. 7. History of atrial flutter. 8. Chronic obstructive pulmonary disease. 9. Gastroesophageal reflux disease. 10.Hyperlipidemia. 11.History of degenerative joint disease. 12.Supraventricular tachycardia history. 13.Appendectomy. 14.History of attention deficit disorder, attention deficit hyperactivity disorder. 15.History of anxiety, depression. 16.History of nicotine dependence. 17.FULL CODE. DISCHARGE DISPOSITION: The patient will be discharged in stable condition with guarded prognosis. TOTAL TIME TAKEN: 30-35 minutes. HISTORY OF PRESENT ILLNESS: This is a 71-year-old woman with a past history of multiple medical problems as mentioned earlier being followed by primary physician in the [place] area, was admitted with acute pyelonephritis and as well as E. coli sepsis. The patient also had a mild hydronephrosis. Urology saw the patient, recommended outpatient followup. Patient improved significantly. The patient is originally from [place]. The patient is going to return to [place] at this time. Currently, the patient is afebrile and Infectious Disease will be clearing the patient for discharge. EXAM: Vitals are stable. CARDIOVASCULAR: S1, S2 muffled. ABDOMEN: Soft. NERVOUS SYSTEM: No focal deficits. DISCHARGE DISPOSITION: The patient will be discharged in stable condition with overall guarded prognosis. Discharge diet is cardiac. Activity limited until followup. Follow up with primary physician in [place]. Follow up with the ID as recommended. MEDICATIONS: 1. Ecotrin 81 mg p.o. daily. 2. Coreg 3.125 mg p.o. b.i.d. 3. Cipro 500 mg p.o. b.i.d. for 12 days per ID. 4. Klonopin 1 mg q.h.s. p.r.n. 5. Lexapro 10 mg p.o. daily. 6. [place] 5 mg every 6 hours p.r.n. 7. DuoNeb q.i.d. and p.r.n. 8. Synthroid 88 mcg p.o. daily. 9. Habitrol 14. 10.No smoking. 11.Protonix 40 mg daily. 12.Carafate 1 g b.i.d. p.r.n. MMMIREYAL / MALIKN: [id number] /
== END 2017-10-17 20:12 | disposition home or self-care (01) | DRG 872 ==
LOC: EC 20:12 → 3SUR 10-14 00:33
PROVIDERS: ADMIT Hospitalist; ATTEND Hospitalist
DX: A41.51 Sepsis due to Escherichia coli [E. coli] (principal); N10 Acute pyelonephritis; I47.1 Supraventricular tachycardia; I48.92 Unspecified atrial flutter; J44.9 Chronic obstructive pulmonary disease, unspecified; D50.9 Iron deficiency anemia, unspecified; E78.5 Hyperlipidemia, unspecified; K21.9 Gastro-esophageal reflux disease without esophagitis; F17.200 Nicotine dependence, unspecified, uncomplicated; F32.9 Major depressive disorder, single episode, unspecified; F41.9 Anxiety disorder, unspecified; F90.9 Attention-deficit hyperactivity disorder, unspecified type; H91.90 Unspecified hearing loss, unspecified ear; E07.9 Disorder of thyroid, unspecified; I50.9 Heart failure, unspecified; Z80.0 Family history of malignant neoplasm of digestive organs; Z79.899 Other long term (current) drug therapy; Z90.49 Acquired absence of other specified parts of digestive tract
CPT/HCPCS: 36415; 74176; 80048; 80053; 81001; 82150; 82272; 83605; 83690; 85025; 85610; 85730; 86850; 86900; 86901; 86920; 87040; 87077; 87086; 87186; 93005; 94640; 94760; 96361; 96365; 96375; 96376; 99285